=== PATIENT | female | born 2000 | race Hispanic/Latino ===

== ENCOUNTER 2018-06-29 21:56 | Emergency (ER) | payer SELFPAY ==
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
--- NOTE | 2018-06-30 10:11 | RAD REPORT ---
EXAM DESCRIPTION: US - TRANSVAG OB - 06/29/2018 10:54 pm CLINICAL HISTORY: Abdominal pain, COMPARISON: None. TECHNIQUE: Endovaginal sonography performed FINDINGS: Left ovary is identified and normal in size. There is a 10 millimeter cyst within the left ovary. No left adnexal mass. No fluid or blood in the cul-de-sac. Right ovary was not visualized. No right adnexal mass. Cervical canal is closed. And oval anechoic cystic structure is present in the fundal portion of the endometrial cavity. Average sac diameter would correspond to a 5 week 0 day age. No yolk sac or pole identifiable. No other mass, hematoma or endometrial abnormality. No myometrial mass. Uterus is 6.5 x 4.3 x 5.0 cm. IMPRESSION: A 5 mm sized oval anechoic masses present in the fundal endometrial cavity. If this is a gestational sac is a 5 week 0 day size. No yolk sac or pole. Right ovary was not visualized. No right adnexal mass. No suspicious left ovarian or left adnexal fin ding.
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
== END 2018-06-30 00:08 | disposition home or self-care (01) ==
LOC: ER 21:56
DX: O26.891 Other specified pregnancy related conditions, first trimester (principal); Z3A.09 9 weeks gestation of pregnancy
CPT/HCPCS: 76813; 99283

== ENCOUNTER 2018-07-07 05:28 | Emergency (ER) | payer BC, SELFPAY ==
--- NOTE | 2018-07-07 06:34 | EDPHYS ---
Physician Documentation [facility] Name: Shakira Shook Age: 18 yrs Sex: Female : 2000 Arrival Date: 07/07/2018 Time: 05:31 Bed 18 Private MD: ED Physician Abimael Ornelas HPI: 07/07 06:28 This 18 yrs old Female presents to ER via Ambulatory with complaints of jr8 Urinary Frequency, 6 Wks Preg. 06:28 The patient presents with urinary symptoms, dysuria, frequency, urgency. Onset: The jr8 symptoms/episode began/occurred acutely, 3 day(s) ago. Modifying factors: The symptoms are alleviated by nothing, the symptoms are aggravated by urinating. Associated signs and symptoms: The patient has no apparent associated signs or symptoms. Severity of symptoms: At their worst the symptoms were mild, in the emergency department the symptoms are unchanged. The patient has not experienced similar symptoms in the past. The patient has not recently seen a physician. 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 - Social history:: Smoking status: Patient/guardian denies using tobacco. - Ebola Screening: : No symptoms or risks identified at this time. ROS: 06:28 Eyes: Negative for injury, pain, redness, and discharge, ENT: Negative for injury, jr8 pain, and discharge, Neck: Negative for injury, pain, and swelling, Cardiovascular: Negative for chest pain, palpitations, and edema, Respiratory: Negative for shortness of breath, cough, wheezing, and pleuritic chest pain, Abdomen/GI: Negative for abdominal pain, nausea, vomiting, diarrhea, and constipation, Back: Negative for injury and pain, MS/Extremity: Negative for injury and deformity, Skin: Negative for injury, rash, and discoloration, Neuro: Negative for headache, weakness, numbness, tingling, and seizure. 06:28 : Positive for urinary symptoms, Negative for vaginal bleeding, vaginal discharge, vaginal itching. Exam: 06:28 Eyes: Pupils equal round and reactive to light, extra-ocular motions intact. Lids and jr8 lashes normal. Conjunctiva and sclera are non-icteric and not injected. Cornea within normal limits. Periorbital areas with no swelling, redness, or edema. ENT: Nares patent. No nasal discharge, no septal abnormalities noted. Tympanic membranes are normal and external auditory canals are clear. Oropharynx with no redness, swelling, or masses, exudates, or evidence of obstruction, uvula midline. Mucous membranes moist. Neck: Trachea midline, no thyromegaly or masses palpated, and no cervical lymphadenopathy. Supple, full range of motion without nuchal rigidity, or vertebral point tenderness. No Meningismus. Cardiovascular: Regular rate and rhythm with a normal S1 and S2. No gallops, murmurs, or rubs. Normal PMI, no JVD. No pulse deficits. Respiratory: Lungs have equal breath sounds bilaterally, clear to auscultation and percussion. No rales, rhonchi or wheezes noted. No increased work of breathing, no retractions or nasal flaring. Abdomen/GI: Soft, non-tender, with normal bowel sounds. No distension or tympany. No guarding or rebound. No evidence of tenderness throughout. Back: No spinal tenderness. No costovertebral tenderness. Full range of motion. Skin: Warm, dry with normal turgor. Normal color with no rashes, no lesions, and no evidence of cellulitis. MS/ Extremity: Pulses equal, no cyanosis. Neurovascular intact. Full, normal range of motion. Neuro: Awake and alert, GCS 15, oriented to person, place, time, and situation. Cranial nerves II-XII grossly intact. Motor strength 5/5 in all extremities. Sensory grossly intact. Cerebellar exam normal. Normal gait. Vital Signs: 06:06 BP 132 / 84; Pulse 60; Resp 18; Temp 98(O); Pulse Ox 100% ; Weight 90.26 kg; Height 5 ea ft. 4 in. (162.56 cm); Pain 0/10; 06:06 Body Mass Index 34.16 (90.26 kg, 162.56 cm) ea MDM: 06:07 Patient medically screened. 8 06:28 Data reviewed: vital signs, nurses notes, lab test result(s). Data interpreted: Pulse jr8 oximetry: on room air is 100 %. Interpretation: normal. Counseling: I had a detailed discussion with the patient and/or guardian regarding: the historical points, exam findings, and any diagnostic results supporting the discharge/admit diagnosis, lab results, the need for outpatient follow up, an OB/Gyne specialist, to return to the emergency department if symptoms worsen or persist or if there are any questions or concerns that arise at home. 07/07 05:46 Order name: Urine Microscopic Only 07/07 06:27 Order name: Urine Dipstick--Ancillary (enter results) sc 07/07 06:27 Order name: Urine --Ancillary (enter results) sc 07/07 06:37 Order name: Urine --Ancillary; Complete Time: 06:59 EDOH 07/07 06:37 Order name: Urine Dipstick-Ancillary; Complete Time: 06:59 [facility] 07/07 06:39 Order name: Urine Microscopic Only; Complete Time: 06:59 EDOH 07/07 05:46 Order name: Urine Dipstick-Ancillary (obtain specimen); Complete Time: 06:29 Administered Medications: No medications were administered Disposition: 19:52 Co-signature as Attending Physician, Abimael Ornelas MD. Disposition: 07/07/18 06:33 Discharged to Home. Impression: Acute cystitis. - Condition is Stable. - Discharge Instructions: Urinary Tract Infection, Adult. - Prescriptions for Macrobid 100 mg Oral Capsule - take 1 capsule by ORAL route every 12 hours for 7 days; 14 capsule. Vitamin 27- 0.8 mg Oral Tablet - take 1 tablet by ORAL route once daily; 60 tablet. - Medication Reconciliation Form, Thank You Letter, Antibiotic Education, Prescription Opioid Use form. - Follow up: Private Physician; When: 2 - 3 days; Reason: Recheck today's complaints, Continuance of care, Re-evaluation by your physician. - Problem is new. - Symptoms have improved. Signatures: Dispatcher [facility] Juan Sung PA PA jr8 Susanna Canas, Abimael Strickland RN, ea, MD MD Makenna Harrison cc3 Corrections: (The following items were deleted from the chart) 07:05 06:33 07/07/2018 06:33 Discharged to Home. Impression: Acute cystitis. Condition is cc3 Stable. Forms are Medication Reconciliation Form, Thank You Letter, Antibiotic Education, Prescription Opioid Use. Follow up: Private Physician; When: 2 - 3 days; Reason: Recheck today's complaints, Continuance of care, Re-evaluation by your physician. Problem is new. Symptoms have improved. jr8
--- NOTE | 2018-07-07 06:34 | ER ---
Nurse's Notes [facility] Name: Shakira Shook Age: 18 yrs Sex: Female : 2000 Arrival Date: 07/07/2018 Time: 05:31 Bed 18 Private MD: Diagnosis: Acute cystitis Presentation: 07/07 06:04 Presenting complaint: Patient states: Pt reports urinary frequency that started 3 days ea ago. Transition of care: patient was not received from another setting of care. Onset of symptoms was July 07, 2018. Risk Assessment: Do you want to hurt yourself or someone else? Patient reports no desire to harm self or others. Initial Sepsis Screen: Does the patient meet any 2 criteria? No. Patient's initial sepsis screen is negative. Does the patient have a suspected source of infection? No. Patient's initial sepsis screen is negative. Care prior to arrival: None. 06:04 Method Of Arrival: Ambulatory ea 06:04 Acuity: FANNIE 3 ea Triage Assessment: 05:58 General: Appears in no apparent distress. comfortable, Behavior is calm, cooperative, cc3 appropriate for age. Pain: Denies pain. 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 - Social history:: Smoking status: Patient/guardian denies using tobacco. - Ebola Screening: : No symptoms or risks identified at this time. Screenin:06 Abuse screen: Denies threats or abuse. Nutritional screening: No deficits noted. ea Tuberculosis screening: No symptoms or risk factors identified. Fall Risk None identified. Assessment: 06:05 Reassessment: see triage assessment. ea 07:00 Reassessment: Patient appears in no apparent distress at this time. Patient and/or cc3 family updated on plan of care and expected duration. Pain level reassessed. Patient is alert, oriented x 3, equal unlabored respirations, skin warm/dry/pink. BRI Sung discharged the patient home with prescription given. No IV cannula in situ. Patient left ER vitally stable and ambulatory with her . Vital Signs: 06:06 BP 132 / 84; Pulse 60; Resp 18; Temp 98(O); Pulse Ox 100% ; Weight 90.26 kg; Height 5 ea ft. 4 in. (162.56 cm); Pain 0/10; 06:06 Body Mass Index 34.16 (90.26 kg, 162.56 cm) ea ED Course: 05:31 Patient arrived in ED. ds1 05:58 Makenna Harrison is Primary Nurse. cc3 06:05 Triage completed. ea 06:06 Arm band placed on right wrist. Patient placed in an exam room, on a stretcher, on ea pulse oximetry. 06:06 Patient has correct armband on for positive identification. Bed in low position. Call ea light in reach. Side rails up X2. 06:07 Juan Sung PA is PHCP. jr8 06:07 Abimael Ornelas MD is Attending Physician. jr8 07:00 No provider procedures requiring assistance completed. Patient did not have IV access cc3 during this emergency room visit. Administered Medications: No medications were administered Outcome: 06:33 Discharge ordered by . jr8 07:00 Discharged to home ambulatory, with family. cc3 07:00 Condition: stable 07:00 Discharge instructions given to patient, family, Instructed on discharge instructions, follow up and referral plans. medication usage, Demonstrated understanding of instructions, follow-up care, medications, Prescriptions given X 2. 07:05 Patient left the ED. cc3 Addendum: 07/10/2018 19:10 Addendum: Culture Results: Positive urine culture. No further action required. Other: i w left message with mother for patient to call charge nurse in morning to follow up with culture report. 07/11/2018 07:46 Addendum: Other Patient called back. Spoke to patient and instructed to continue a a5 Macrobid and follow-up with WELL REACTIVATOR OPERATOR per Anuj Nevarez MD , Pt verbalized understanding. Signatures: Melba Zafar ds1 Luz Maria Landrum, RN ISABEL Yara Mckeon RN RN aa5 Juan Sung PA PA jr8 Susanna Canas RN RN ea Cordel, Charlene cc3
[2018-07-07 06:36] LABS: Urine Blood 1+ (NEG); Urine Glucose NEGATIVE (NEG); Urine Protein 1+ (NEG); Urine Specific Gravity 1.025 (1.005-1.030)
[2018-07-07 06:38] LABS: Urine Bacteria 20-50 /HPF (<20); Urine Culture Reflex Order REFLEXED; Urine RBC <5 /HPF (NONE SEEN)
== END 2018-07-07 07:05 | disposition home or self-care (01) ==
LOC: ER 05:28
DX: O23.11 Infections of bladder in pregnancy, first trimester (principal); N30.90 Cystitis, unspecified without hematuria; Z3A.01 Less than 8 weeks gestation of pregnancy
CPT/HCPCS: 81003; 81015; 81025; 87077; 87086; 87088; 87186; 99283

== ENCOUNTER 2018-07-12 17:05 | Emergency (ER) | payer BC ==
[2018-07-12 17:56] LABS: Urine Blood 2+ (NEG); Urine Glucose NEGATIVE (NEG); Urine Protein 1+ (NEG); Urine Specific Gravity 1.025 (1.005-1.030)
[2018-07-12 17:56] LABS: Absolute Lymphocytes (CBC) 1.9 K/uL (0.7-4.9); Absolute Monocytes 0.5 K/uL (0.1-1.3); Absolute Neutrophil 4.4 K/uL (1.8-8.0); Basophils % 0.8 % (0-1.3); Eosinophils % 0.6 % (0-4.4); Hematocrit 39.3 % (36.0-45.0); Lymphocytes % 27.6 % (15.3-44.8); MPV 12.6 fL (7.6-11.3); Monocytes % 7.1 % (3.3-12.3); RBC Red Blood Cell Count 4.38 M/uL (3.86-4.86)
[2018-07-12 18:14] LABS: Platelet Estimate DECR; Urine White Blood Cell Casts OK
[2018-07-12 18:15] LABS: Blood Morphology Comment NOT SEEN (NOT SEEN); Platelets, Giant PRESENT
[2018-07-12 18:26] LABS: BUN Blood Urea Nitrogen 15 mg/dL (7-18); Bicarbonate 26 mmol/L (21-32); Glucose Level 93 mg/dL (74-106); HCG, Quantitative 6685 mIU/mL (1-3); Potassium 3.8 mmol/L (3.5-5.1); Sodium Level 140 mmol/L (136-145)
--- NOTE | 2018-07-12 19:31 | RAD REPORT ---
EXAM DESCRIPTION: US - Transvaginal OB - 07/12/2018 7:13 pm CLINICAL HISTORY: with abdominal pain and vaginal bleeding COMPARISON: None. FINDINGS: The uterus 7 x 4 x 5 centimeters. A gestational sac is not seen within the endometrium. The ovaries are normal in size and echotexture. 11 millimeter left ovarian follicles present. . An ad nexal mass is not noted. No significant free fluid is seen. IMPRESSION: Nonvisualization gestational sac in the endometrium. This may represent a normal intrauterine in which the gestational sac is not yet seen secon bob to the early age. and even an ectopic can also have this presentation. This a ll should be correlated clinically and with serial beta HCG levels. Followup endovaginal sonogram in 1 week recommended.
--- NOTE | 2018-07-12 19:53 | EDPHYS ---
Physician Documentation [facility] Name: Shakira Shook Age: 18 yrs Sex: Female : 2000 Arrival Date: 07/12/2018 Time: 17:08 Bed 30 Private MD: Heidy Boland K ED Physician Tom Aparicio HPI: 07/12 18:58 This 18 yrs old Female presents to ER via Ambulatory with complaints of 6 wks jr8 , Vaginal Bleeding. 18:58 Onset: The symptoms/episode began/occurred acutely, today. Modifying factors: The jr8 symptoms are alleviated by nothing, the symptoms are aggravated by nothing. Associated signs and symptoms: The patient has no apparent associated signs or symptoms. Severity of symptoms: At their worst the symptoms were mild, in the emergency department the symptoms are unchanged. The patient has not experienced similar symptoms in the past. The patient has not recently seen a physician. 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 - Social history:: Smoking status: Patient/guardian denies using tobacco. - Ebola Screening: : No symptoms or risks identified at this time. ROS: 18:58 Eyes: Negative for injury, pain, redness, and discharge, ENT: Negative for injury, jr8 pain, and discharge, Neck: Negative for injury, pain, and swelling, Cardiovascular: Negative for chest pain, palpitations, and edema, Respiratory: Negative for shortness of breath, cough, wheezing, and pleuritic chest pain, Abdomen/GI: Negative for abdominal pain, nausea, vomiting, diarrhea, and constipation, Back: Negative for injury and pain, MS/Extremity: Negative for injury and deformity, Skin: Negative for injury, rash, and discoloration, Neuro: Negative for headache, weakness, numbness, tingling, and seizure. 18:58 : Positive for pelvic pain, vaginal bleeding, Negative for vaginal discharge, vaginal itching. Exam: 18:58 Eyes: Pupils equal round and reactive to light, extra-ocular motions intact. Lids and jr8 lashes normal. Conjunctiva and sclera are non-icteric and not injected. Cornea within normal limits. Periorbital areas with no swelling, redness, or edema. ENT: Nares patent. No nasal discharge, no septal abnormalities noted. Tympanic membranes are normal and external auditory canals are clear. Oropharynx with no redness, swelling, or masses, exudates, or evidence of obstruction, uvula midline. Mucous membranes moist. Neck: Trachea midline, no thyromegaly or masses palpated, and no cervical lymphadenopathy. Supple, full range of motion without nuchal rigidity, or vertebral point tenderness. No Meningismus. Cardiovascular: Regular rate and rhythm with a normal S1 and S2. No gallops, murmurs, or rubs. Normal PMI, no JVD. No pulse deficits. Respiratory: Lungs have equal breath sounds bilaterally, clear to auscultation and percussion. No rales, rhonchi or wheezes noted. No increased work of breathing, no retractions or nasal flaring. Abdomen/GI: Soft, non-tender, with normal bowel sounds. No distension or tympany. No guarding or rebound. No evidence of tenderness throughout. Back: No spinal tenderness. No costovertebral tenderness. Full range of motion. Skin: Warm, dry with normal turgor. Normal color with no rashes, no lesions, and no evidence of cellulitis. MS/ Extremity: Pulses equal, no cyanosis. Neurovascular intact. Full, normal range of motion. Neuro: Awake and alert, GCS 15, oriented to person, place, time, and situation. Cranial nerves II-XII grossly intact. Motor strength 5/5 in all extremities. Sensory grossly intact. Cerebellar exam normal. Normal gait. Vital Signs: 17:13 BP 131 / 89; Pulse 68; Resp 16; Temp 97.7; Pulse Ox 100% on R/A; Pain 0/10; hb 18:18 BP 129 / 66; Pulse 71; Resp 18; Pulse Ox 100% on R/A; ca1 19:30 BP 148 / 73; Pulse 103; Resp 18; Pulse Ox 100% on R/A; ca1 20:24 BP 149 / 87; Pulse 86; Resp 19; Pulse Ox 100% on R/A; ca1 21:23 BP 131 / 74; Pulse 77; Resp 18; Pulse Ox 100% on R/A; ca1 MDM: 17:22 Patient medically screened. [facility] 19:47 Data reviewed: vital signs, nurses notes, lab test result(s), radiologic studies, [facility] ultrasound. Data interpreted: Pulse oximetry: on room air is 100 %. Interpretation: normal. Counseling: I had a detailed discussion with the patient and/or guardian regarding: the historical points, exam findings, and any diagnostic results supporting the discharge/admit diagnosis, lab results, radiology results, the need for outpatient follow up, an OB/Gyne specialist, to return to the emergency department if symptoms worsen or persist or if there are any questions or concerns that arise at home. ED course: Discussed platelet count with patient. Also discussed with patient that there was a confirmed IUP last US completed here. Today without IUP. Most likely a complete missed . Patient received Rhogam for Rh (-) blood type. Will f/u with [facility] Specialist. 07/12 17:31 Order name: Quantitative Hcg; Complete Time: 18:53 [facility] 07/12 17:31 Order name: Abo/rh Typing [facility] 07/12 17:31 Order name: Basic Metabolic Panel; Complete Time: 18:53 [facility] 07/12 17:31 Order name: CBC with Diff; Complete Time: 18:53 [facility] 07/12 17:47 Order name: Urine Dipstick--Ancillary (enter results); Complete Time: 18:53 [facility] 07/12 17:47 Order name: Urine --Ancillary (enter results); Complete Time: 18:53 [facility] 07/12 18:11 Order name: CBC Smear Scan; Complete Time: 18:53 [facility] 07/12 18:53 Order name: US Transvaginal Ob; Complete Time: 19:32 [facility] 07/12 19:14 Order name: ABO/RH no charge; Complete Time: 19:32 [facility] 07/12 19:48 Order name: Antibody Screen [facility] 07/12 19:48 Order name: Fetalscreen [facility] 07/12 19:48 Order name: Cord Rh type [facility] 07/12 19:48 Order name: Rhogam [facility] 07/12 17:31 Order name: Urine Test (obtain specimen); Complete Time: 17:44 [facility] 07/12 17:31 Order name: IV Saline Lock; Complete Time: 17:42 [facility] 07/12 17:31 Order name: Labs collected and sent; Complete Time: 17:42 8 07/12 17:31 Order name: NPO; Complete Time: 17:42 8 07/12 17:31 Order name: Urine Dipstick-Ancillary (obtain specimen); Complete Time: 17:44 Administered Medications: 20:50 Drug: Rho D Immune Globulin 300 mcg Route: IM; Site: right deltoid; ca1 21:24 Follow up: Response: No adverse reaction ca1 Disposition: 07/13 06:31 Co-signature as Attending Physician, Tom Aparicio MD I agree with the assessment and kdr plan of care. Disposition: 07/12/18 19:52 Discharged to Home. Impression: Thrombocytopenia, unspecified, Complete . - Condition is Stable. - Discharge Instructions: Miscarriage, Thrombocytopenia. - Medication Reconciliation Form, Thank You Letter, Antibiotic Education, Prescription Opioid Use form. - Follow up: Private Physician; When: 2 - 3 days; Reason: Recheck today's complaints, Continuance of care, Re-evaluation by your physician. - Problem is new. - Symptoms have improved. Signatures: Dispatcher [employer] [facility] Tom Aparicio MD MD [facility] Juan Sung PA PA jr8 Kimberly Ritter RN RN Deana Ramirez RN RN ca1 Corrections: (The following items were deleted from the chart) 07/12 18:59 18:58 Onset: The symptoms/episode began/occurred acutely, today, [facility] 19:52 19:48 Rh Typing ordered. [facility] 21:25 19:52 07/12/2018 19:52 Discharged to Home. Impression: Thrombocytopenia, unspecified; ca1 Complete . Condition is Stable. Forms are Medication Reconciliation Form, Thank You Letter, Antibiotic Education, Prescription Opioid Use. Follow up: Private Physician; When: 2 - 3 days; Reason: Recheck today's complaints, Continuance of care, Re-evaluation by your physician. Problem is new. Symptoms have improved. jr8
--- NOTE | 2018-07-12 19:53 | ER ---
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 Pt reports she is hb approx. 6 weeks , LMP 04/2018, JUSTIN 03/06/2019, . Pt also reports she is on nitrofurantoin day 7 for UTI. Transition of care: patient was not received from another setting of care. Onset of symptoms was July 12, 2018. Risk Assessment: Do you want to hurt yourself or someone else? Patient reports no desire to harm self or others. Initial Sepsis Screen: Does the patient meet any 2 criteria? No. Patient's initial sepsis screen is negative. Does the patient have a suspected source of infection? No. Patient's initial sepsis screen is negative. Care prior to arrival: None. 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 - Social history:: Smoking status: Patient/guardian denies using tobacco. - Ebola Screening: : No symptoms or risks identified at this time. Screenin:20 Abuse screen: Denies threats or abuse. Denies injuries from another. Nutritional ca1 screening: No deficits noted. Tuberculosis screening: No symptoms or risk factors identified. Fall Risk None identified. Assessment: 17:20 General: Appears in no apparent distress. Behavior is calm, cooperative, appropriate ca1 for age. Pain: Complains of pain in suprapubic area, right lower quadrant and left lower quadrant Pain does not radiate. Pain currently is 3 out of 10 on a pain scale. Quality of pain is described as crampy, Pain began 1 hour ago. Neuro: Level of Consciousness is awake, alert, obeys commands, Oriented to person, place, time, situation. Cardiovascular: Heart tones S1 S2 present Capillary refill < 3 seconds Patient's skin is warm and dry. Respiratory: Airway is patent Respiratory effort is even, unlabored, Respiratory pattern is regular, symmetrical, Breath sounds are clear bilaterally. GI: Abdomen is round non-distended, Bowel sounds present X 4 quads. Abd is soft X 4 quads. : Urine is clear, Reports vaginal bleeding that is bright red, with clots, since an hour ago. EENT: No signs and/or symptoms were reported regarding the EENT system. Derm: Skin is intact, is healthy with good turgor, Skin is pink, warm \T\ dry. Musculoskeletal: Circulation, motion, and sensation intact. Capillary refill < 3 seconds. 18:18 Reassessment: Patient appears in no apparent distress at this time. Patient and/or ca1 family updated on plan of care and expected duration. Pain level reassessed. Patient is alert, oriented x 3, equal unlabored respirations, skin warm/dry/pink. 19:00 Reassessment: Pt to Ultrasound.. ca1 19:30 Reassessment: Patient appears in no apparent distress at this time. Patient and/or ca1 family updated on plan of care and expected duration. Pain level reassessed. Patient is alert, oriented x 3, equal unlabored respirations, skin warm/dry/pink. 19:40 Reassessment: RBI Lynch at bedside. Faxed Rho D Immune Globulin to Lab. Awaiting ca1 instructions for garbage pick up worker. 20:24 Reassessment: Patient appears in no apparent distress at this time. Patient and/or ca1 family updated on plan of care and expected duration. Pain level reassessed. Patient is alert, oriented x 3, equal unlabored respirations, skin warm/dry/pink. Still awaiting RhoGam from Lab. 20:50 Reassessment: Patient appears in no apparent distress at this time. Patient is alert, ca1 oriented x 3, equal unlabored respirations, skin warm/dry/pink. Pt kept for observation after RhoGam administration. 21:23 Reassessment: Patient appears in no apparent distress at this time. Patient and/or ca1 family updated on plan of care and expected duration. Pain level reassessed. Patient is alert, oriented x 3, equal unlabored respirations, skin warm/dry/pink. Vital Signs: 17:13 BP 131 / 89; Pulse 68; Resp 16; Temp 97.7; Pulse Ox 100% on R/A; Pain 0/10; hb 18:18 BP 129 / 66; Pulse 71; Resp 18; Pulse Ox 100% on R/A; ca1 19:30 BP 148 / 73; Pulse 103; Resp 18; Pulse Ox 100% on R/A; ca1 20:24 BP 149 / 87; Pulse 86; Resp 19; Pulse Ox 100% on R/A; ca1 21:23 BP 131 / 74; Pulse 77; Resp 18; Pulse Ox 100% on R/A; ca1 ED Course: 17:08 Patient arrived in ED. mr 17:08 Heidy Boland MD is Private Physician. mr 17:13 Triage completed. hb 17:13 Arm band placed on. hb 17:20 Patient has correct armband on for positive identification. Placed in gown. Bed in low ca1 position. Call light in reach. Side rails up X 1. Pulse ox on. NIBP on. Warm blanket given. 17:21 Juan Sung PA is PHCP. jrChris 17:21 Tom Aparicio MD is Attending Physician. jr8 17:28 Deana Ramirez RN is Primary Nurse. ca1 17:40 Inserted saline lock: 18 gauge in right antecubital area, using aseptic technique. rv Blood collected. 19:13 US Transvaginal Ob In Process Unspecified. EDMS 21:25 No provider procedures requiring assistance completed. IV discontinued, intact, ca1 bleeding controlled, No redness/swelling at site. Pressure dressing applied. Administered Medications: 20:50 Drug: Rho D Immune Globulin 300 mcg Route: IM; Site: right deltoid; ca1 21:24 Follow up: Response: No adverse reaction ca1 Outcome: 19:52 Discharge ordered by . catherine 21:25 Discharged to home ambulatory, with family. ca1 21:25 Condition: stable 21:25 Discharge instructions given to patient, family, Instructed on discharge instructions, follow up and referral plans. Demonstrated understanding of instructions, follow-up care. 21:25 Patient left the ED. 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 Pt reports hb she is approx. 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 Pt reports hb she is approx. 6 weeks , LMP 04/2018, JUSTIN 03/06/2019, . Pt also reports she is on nitrofurantoin day 8 for UTI. hb
== END 2018-07-12 21:25 | disposition home or self-care (01) ==
LOC: ER 17:05
DX: O03.9 Complete or unspecified spontaneous abortion without complication (principal); O99.111 Other diseases of the blood and blood-forming organs and certain disorders involving the immune mechanism complicating pregnancy, first trimester; Z3A.01 Less than 8 weeks gestation of pregnancy
CPT/HCPCS: 36415; 76817; 80048; 81003; 81025; 84702; 85025; 86850; 86900; 86901; 96372; 99284; J2790